=== PATIENT | male | born 1985 | race Hispanic/Latino ===

== ENCOUNTER 2018-02-09 01:38 | Emergency (ER) | payer BC ==
[2018-02-09] MEDS ORDERED: predniSONE 20 MG TAB ONE (02:28)
== END 2018-02-09 03:30 | disposition home or self-care (01) ==
LOC: ERS 01:38
DX: J45.901 Unspecified asthma with (acute) exacerbation (principal); Z79.899 Other long term (current) drug therapy
CPT/HCPCS: 94640; J7506; J7620

== ENCOUNTER 2018-06-26 08:12 | Emergency (ER) | payer BC ==
[2018-06-26] MEDS ORDERED: Ketorolac Tromethamine 30 MG/ML VIAL ONE (08:38)
[2018-06-26] MEDS ORDERED: Metoclopramide HCl 10 MG/2 ML VIAL ONE (08:38)
[2018-06-26] MEDS ORDERED: diphenhydrAMINE 50 MG/ML VIAL ONE (08:38)
--- NOTE | 2018-06-26 09:20 | CT ---
HEAD CT WITHOUT CONTRAST: HISTORY: Headache. COMPARISON: None. FINDINGS: No parenchymal hemorrhage. No extraaxial hematoma. No midline shift. Basilar cisterns are patent. Brain volume, age appropriate. Cortical tineo-white matter differentiation is preserved. No evidence of hydrocephalus. Adequate aeration of the sinuses and mastoid air cells. Calvarium is intact. IMPRESSION: No acute intracranial process. POS: [facility]
== END 2018-06-26 13:20 | disposition home or self-care (01) ==
LOC: ERS 08:12
DX: R51 Headache (principal); J45.909 Unspecified asthma, uncomplicated
CPT/HCPCS: 70450; 94640; 96365; 96366; 96375; J1200; J1885; J2765; J7620

== ENCOUNTER 2019-06-25 19:56 | Emergency (ER) | payer BC ==
[2019-06-25] MEDS ORDERED: Acetaminophen 500 MG TAB ONE (21:29)
[2019-06-25] MEDS ORDERED: Ketorolac Tromethamine 30 MG/ML VIAL ONE (21:29)
[2019-06-25] MEDS ORDERED: Ondansetron ODT 4 MG TAB ONE (21:29)
== END 2019-06-25 21:58 | disposition home or self-care (01) ==
LOC: ERS 19:56
DX: G43.909 Migraine, unspecified, not intractable, without status migrainosus (principal); J45.909 Unspecified asthma, uncomplicated; Z79.51 Long term (current) use of inhaled steroids
CPT/HCPCS: 96372; 99283; J1885; Q0162

== ENCOUNTER 2019-08-31 07:33 | Emergency (ER) | payer BC ==
[2019-08-31] MEDS ORDERED: methylPREDNISolone Sod Succ/PF 125 MG/2 ML VIAL ONE (09:47)
== END 2019-08-31 10:15 | disposition home or self-care (01) ==
LOC: ERS 07:33
DX: J45.901 Unspecified asthma with (acute) exacerbation (principal)
CPT/HCPCS: 94640; 96372; J2930; J7620